=== PATIENT | female | born 1935 | race Caucasian/White ===

== ENCOUNTER → 2018-07-27 08:53 | Outpatient (CLI) | payer MEDICARE, OTHER | END | disposition home or self-care (01) | LOC: D.CT 08:53 | PROVIDERS: ATTEND Family Medicine | DX: R10.13 Epigastric pain (principal) ==

== ENCOUNTER 2018-08-06 07:48 | Inpatient (IN) | payer MEDICARE, OTHER ==
[~2018-08-06] VITALS: Ht 157.5 cm; Wt 71.7 kg
[2018-08-06 08:13] LABS: BASOPHILS 0.4 % (0-2); HEMATOCRIT 39.3 % (36.0-48.0); HEMOGLOBIN 13.7 g/dL (12-16); IMMATURE GRANULOCYTES 0.1 % (0-5); LYMPHOCYTES 17.5 % (15-50); MCH 32.1 pg (26.0-34.0); MCHC 34.9 g/dL (31.0-37.0); MEAN PLATELET VOLUME 10.2 fL (7.4-10.4); MONOCYTES 13.3 % (2-11); NEUTROPHILS 66.7 % (40-80); PLATELET COUNT 241 10x3/uL (130-400); RBC 4.27 10x6/uL (4.00-5.40); RDW 15.6 % (11.5-14.5); WBC 6.9 10x3/uL (4.8-10.8)
[2018-08-06 08:23] LABS: APTT 30.7 SECONDS (22.8-39.4); INR 1.03 (0.85-1.17)
[2018-08-06 08:38] LABS: ALBUMIN 2.9 g/dL (3.4-5.0); ANION GAP 17.5 mmol/L (8-16); BILIRUBIN - TOTAL 13.42 mg/dL (0.2-1.3); CALCIUM 9.9 mg/dL (8.5-10.1); CARBON DIOXIDE 26.8 mmol/L (21.0-32.0); CREATININE - SERUM 0.8 mg/dL (0.6-1.3); POTASSIUM - SERUM 3.3 mmol/L (3.5-5.1); PROTEIN - SERUM 7.6 g/dL (6.4-8.2)
[2018-08-06] MEDS ORDERED: AMBIEN10 MG (09:04)
[2018-08-06 09:20] VITALS: BP 142/85; BMI 30.4
[2018-08-06] MEDS ORDERED: SENNA8.6 MG PO (19:56)
[2018-08-06 20:06] VITALS: BP 149/77
[2018-08-06 21:10] VITALS: BP 149/77; BMI 28.9
[2018-08-07 03:15] VITALS: BP 153/83
[2018-08-07 08:09] VITALS: BP 155/80
[2018-08-07 09:01] LABS: BASOPHILS 0.3 % (0-2); EOSINOPHILS 1.6 % (0-7); HEMATOCRIT 36.6 % (36.0-48.0); IMMATURE GRANULOCYTES 0.2 % (0-5); LYMPHOCYTES 14.5 % (15-50); MCH 32.2 pg (26.0-34.0); MCHC 35.5 g/dL (31.0-37.0); MCV 90.6 fL (80.0-100.0); MEAN PLATELET VOLUME 10.1 fL (7.4-10.4); MONOCYTES 13.1 % (2-11); NEUTROPHILS 70.3 % (40-80); PLATELET COUNT 239 10x3/uL (130-400); RBC 4.04 10x6/uL (4.00-5.40); RDW 15.6 % (11.5-14.5); WBC 6.3 10x3/uL (4.8-10.8)
[2018-08-07 09:18] LABS: ALBUMIN 2.3 g/dL (3.4-5.0); ALKALINE PHOSPHATASE 513 U/L (46-116); BILIRUBIN - TOTAL 13.72 mg/dL (0.2-1.3); CALC OSMOLALITY 271 mosm/kg (275-300); CALCIUM 9.1 mg/dL (8.5-10.1); CARBON DIOXIDE 28.3 mmol/L (21.0-32.0); CHLORIDE - SERUM 100 mmol/L (98-107); CREATININE - SERUM 0.5 mg/dL (0.6-1.3); GLUCOSE 156 mg/dL (74-106); POTASSIUM - SERUM 3.5 mmol/L (3.5-5.1); PROTEIN - SERUM 6.6 g/dL (6.4-8.2); SODIUM 135 mmol/L (136-145); UREA NITROGEN 9 mg/dL (7-18)
[2018-08-07 09:19] LABS: ALT (SGPT) 84 U/L (10-68); eGFR NON AFRICAN AMERICAN > 90 mL/min (90-120)
[2018-08-07 10:09] VITALS: Ht 157.5 cm; Wt 71.7 kg
[2018-08-07 12:30] VITALS: BP 136/73
[2018-08-07 21:30] VITALS: BP 162/91
[2018-08-08 05:12] VITALS: BP 163/78
[2018-08-08 08:01] LABS: INR 1.1 (0.85-1.17); PROTIME 13.7 SECONDS (11.6-15.0)
[2018-08-08 08:02] LABS: BASOPHILS 0.1 % (0-2); EOSINOPHILS 0.9 % (0-7); HEMOGLOBIN 12.1 g/dL (12-16); IMMATURE GRANULOCYTES 0.3 % (0-5); LYMPHOCYTES 12.4 % (15-50); MCH 31.5 pg (26.0-34.0); MCHC 34.6 g/dL (31.0-37.0); MCV 91.1 fL (80.0-100.0); MEAN PLATELET VOLUME 10.6 fL (7.4-10.4); MONOCYTES 16.1 % (2-11); NEUTROPHILS 70.2 % (40-80); PLATELET COUNT 232 10x3/uL (130-400); RBC 3.84 10x6/uL (4.00-5.40); RDW 15.9 % (11.5-14.5); WBC 6.8 10x3/uL (4.8-10.8)
[2018-08-08 08:06] VITALS: BP 133/88
[2018-08-08 08:09] LABS: ALBUMIN 2.1 g/dL (3.4-5.0); ALKALINE PHOSPHATASE 470 U/L (46-116); ALT (SGPT) 67 U/L (10-68); AMYLASE - SERUM 9 U/L (25-115); BILIRUBIN - TOTAL 17.15 mg/dL (0.2-1.3); CALC OSMOLALITY 270 mosm/kg (275-300); CALCIUM 8.6 mg/dL (8.5-10.1); CARBON DIOXIDE 26.1 mmol/L (21.0-32.0); CHLORIDE - SERUM 100 mmol/L (98-107); CREATININE - SERUM 0.5 mg/dL (0.6-1.3); GLUCOSE 152 mg/dL (74-106); LIPASE 52 U/L (73-393); PROTEIN - SERUM 6.1 g/dL (6.4-8.2); SODIUM 135 mmol/L (136-145); eGFR NON AFRICAN AMERICAN > 90 mL/min (90-120)
[2018-08-08 08:10] LABS: UREA NITROGEN 6 mg/dL (7-18)
[2018-08-08 15:59] VITALS: BP 155/75
[2018-08-08 16:30] VITALS: BP 164/83
[2018-08-08 20:00] VITALS: BP 129/81
[2018-08-09] VITALS: BP 160/87
[2018-08-09 05:00] VITALS: BP 131/78
[2018-08-09 07:12] LABS: BASOPHILS 0 % (0-2); EOSINOPHILS 1.4 % (0-7); HEMATOCRIT 34.4 % (36.0-48.0); HEMOGLOBIN 11.9 g/dL (12-16); IMMATURE GRANULOCYTES 0.2 % (0-5); LYMPHOCYTES 20.7 % (15-50); MCH 31.3 pg (26.0-34.0); MCHC 34.6 g/dL (31.0-37.0); MCV 90.5 fL (80.0-100.0); MEAN PLATELET VOLUME 10.9 fL (7.4-10.4); MONOCYTES 12.6 % (2-11); NEUTROPHILS 65.1 % (40-80); PLATELET COUNT 247 10x3/uL (130-400); RDW 16.4 % (11.5-14.5); WBC 5.7 10x3/uL (4.8-10.8)
[2018-08-09 07:27] LABS: ALBUMIN 1.9 g/dL (3.4-5.0); ALKALINE PHOSPHATASE 423 U/L (46-116); ALT (SGPT) 52 U/L (10-68); BILIRUBIN - TOTAL 17.65 mg/dL (0.2-1.3); CALC OSMOLALITY 278 mosm/kg (275-300); CALCIUM 8.8 mg/dL (8.5-10.1); CARBON DIOXIDE 25.9 mmol/L (21.0-32.0); CHLORIDE - SERUM 106 mmol/L (98-107); CREATININE - SERUM 0.4 mg/dL (0.6-1.3); GLUCOSE 152 mg/dL (74-106); PROTEIN - SERUM 5.6 g/dL (6.4-8.2); SODIUM 139 mmol/L (136-145); UREA NITROGEN 7 mg/dL (7-18); eGFR NON AFRICAN AMERICAN > 90 mL/min (90-120)
[2018-08-09 07:31] LABS: POTASSIUM - SERUM 3.5 mmol/L (3.5-5.1)
[2018-08-09 08:00] VITALS: BP 141/73
[2018-08-09 14:16] VITALS: BP 139/70
[2018-08-09 14:47] LABS: APPEARANCE CLEAR (CLEAR); COLOR AMBER (YELLOW); GLUCOSE NEGATIVE (NEGATIVE); KETONE NEGATIVE (NEGATIVE); NITRITE NEGATIVE (NEGATIVE); PROTEIN NEGATIVE (NEGATIVE); SPECIFIC GRAVITY 1.015 (1.005-1.020)
[2018-08-09 14:48] LABS: BILIRUBIN 3+ (NEGATIVE)
[2018-08-09 14:49] LABS: BACTERIA MODERATE /hpf (NONE SEEN); EPITHELIAL CELLS 0-5 /hpf (0-5); RED CELLS - URINE 0-5 /hpf (0-5); WHITE CELLS - URINE 0-5 /hpf (0-5)
[2018-08-09 16:00] VITALS: BP 155/82
[2018-08-09 20:49] VITALS: BP 153/93
[2018-08-10 01:07] VITALS: BP 150/85
[2018-08-10 06:17] VITALS: BP 147/83
[2018-08-10 07:14] LABS: ALBUMIN 1.8 g/dL (3.4-5.0); ALKALINE PHOSPHATASE 399 U/L (46-116); ALT (SGPT) 42 U/L (10-68); BILIRUBIN - TOTAL 13.99 mg/dL (0.2-1.3); CALC OSMOLALITY 277 mosm/kg (275-300); CALCIUM 8.6 mg/dL (8.5-10.1); CARBON DIOXIDE 25.8 mmol/L (21.0-32.0); CHLORIDE - SERUM 103 mmol/L (98-107); GLUCOSE 162 mg/dL (74-106); POTASSIUM - SERUM 3.2 mmol/L (3.5-5.1); PROTEIN - SERUM 5.8 g/dL (6.4-8.2); SODIUM 138 mmol/L (136-145); UREA NITROGEN 8 mg/dL (7-18)
[2018-08-10 07:27] LABS: CREATININE - SERUM 0.6 mg/dL (0.6-1.3); eGFR NON AFRICAN AMERICAN > 90 mL/min (90-120)
[2018-08-10 07:34] LABS: HEMOGLOBIN 12.1 g/dL (12-16); LYMPHOCYTES 22.2 % (15-50); MCH 32.5 pg (26.0-34.0); MCHC 34.6 g/dL (31.0-37.0); MEAN PLATELET VOLUME 10.1 fL (7.4-10.4); NEUTROPHILS 63.1 % (40-80); PLATELET COUNT 210 10x3/uL (130-400); RBC 3.72 10x6/uL (4.00-5.40); RDW 18.6 % (11.5-14.5); WBC 4.6 10x3/uL (4.8-10.8)
[2018-08-10 07:35] LABS: MCV 94.1 fL (80.0-100.0)
[2018-08-10 08:01] VITALS: BP 145/71
[2018-08-10 12:00] VITALS: BP 143/78
--- NOTE | 2018-08-10 15:06 | MORECARE ---
CASE MANAGEMENT DISCHARGE SUMMARY PATIENT: KENNEDY BRYAN UNIT: [id number] ADM DATE: 08/06/18 AGE: 83 : 37 SEX: F ROOM/BED: D.1209 AUTHOR: ANDREW,DOC PHYSICIAN: REFERRING PHYSICIAN: YULISA CORTEZ MD DATE OF SERVICE: 08/10/18 Discharge Plan Patient Name: KENNEDY BRYAN Facility: [facility]:[place] : 1935 Planned Disposition: Home Anticipated Discharge Date: 08/11/18 Discharge Date: Expected LOS: 5 Initial Reviewer: [email or web address] Initial Review Date: 08/10/2018 Generated: 08/10/18 4:06 pm Comments DCP- Discharge Planning Updated by [id number]: Lana Lopez on 08/10/18 2:[address] CM met with patient about discharge planning / needs. Patient states her plan is to discharge to home where she lives alone. States home environment is safe. States she has family and friends that are available to come stay with her and help her as needed / requested. Denies need for home health or other discharge planning needs at this time. States her friend will transport her home upon hospital discharged. CM explained and served DC IMM. CM will continue to follow and assist as needed with discharge planning / needs. DCP- Discharge Planning Updated by [email or web address]: Lana Lopez on 08/09/18 3:[address] CM ATTEMPTED TO MEET WITH PATIENT TO DISCUSS DISCHARGE PLANNING / NEEDS. DR VALLECILLO IN PATIENT'S ROOM. REQUESTED CM TO COME BACK TOMORROW. CM WILL RE-ATTEMPT ASSESSMENT TOMORROW. DCPIA - Discharge Planning Initial Assessment Updated by [email or web address]: Lana Lopez on 08/10/18 3:01 pm * Is the patient Alert and Oriented? Yes * How many steps to enter\exit or inside your home? * PCP DR TRACY * Pharmacy [address] * Preadmission Environment Home Alone * ADLs Independent * Equipment None * Other Equipment HAS BUILT IN CHAIR/BENCH X2 IN SHOWER * List name and contact numbers for known caregivers / representatives who currently or will assist patient after discharge: LAURA MAGAÑA, DAUGHTER, * Verbal permission to speak to the caregivers and representatives has been obtained from the patient. N/A * Community resources currently utilized None * Additional services required to return to the preadmission environment? No * Can the patient safely return to the preadmission environment? Yes * Has this patient been hospitalized within the prior 30 days at any hospital? No Coverage Notice Reviewer: [email or web address] Michelle Lopez Notice Issued Date-Time: 08/10/2018 14:35 Notice Type: IM Discharge Notice Notice Delivered To: Patient Relationship to Patient: Self Phosphorus Processing Supervisor Name: Delivery Method: HAND - Hand Delivered Tabatha Days: Prior Verbal Notification: Recipient Understood Notice: Yes Recipient Signature: Yes Med Rec Note Co-signed by Attending: Coverage Notice Comment: Patient Name: KENNEDY BRYAN Page [phone] at 1506 All edits/amendments must be made on the electronic document DICTATION DATE: 08/10/18 1506 POST TENSIONING IRONWORKER: ELIUD 08/10/18 1506 RPT#: [id number] DC DATE: STATUS: ADM IN [facility] [address] [place] [address] END OF REPORT
[2018-08-10 16:00] VITALS: BP 144/66
--- NOTE | 2018-08-13 09:27 | MORECARE ---
CASE MANAGEMENT DISCHARGE SUMMARY PATIENT: KENNEDY BRYAN UNIT: [id number] ADM DATE: 08/06/18 AGE: 83 : 37 SEX: F ROOM/BED: D.1209 AUTHOR: ANDREW,DOC PHYSICIAN: REFERRING PHYSICIAN: YULISA CORTEZ MD DATE OF SERVICE: 08/13/18 Discharge Plan Patient Name: KENNEDY BRYAN Facility: [facility]:[place] : 1935 Planned Disposition: Home Anticipated Discharge Date: 08/11/18 Discharge Date: 08/10/2018 Expected LOS: 5 Initial Reviewer: [email or web address] Initial Review Date: 08/10/2018 Generated: 08/13/18 10:26 am Comments DCP- Discharge Planning Updated by [email or web address]: Lana Lopez on 08/10/18 2:[address] CM met with patient about discharge planning / needs. Patient states her plan is to discharge to home where she lives alone. States home environment is safe. States she has family and friends that are available to come stay with her and help her as needed / requested. Denies need for home health or other discharge planning needs at this time. States her friend will transport her home upon hospital discharged. CM explained and served DC IMM. CM will continue to follow and assist as needed with discharge planning / needs. DCP- Discharge Planning Updated by [email or web address]: Lana Lopez on 08/09/18 3:[address] CM ATTEMPTED TO MEET WITH PATIENT TO DISCUSS DISCHARGE PLANNING / NEEDS. DR VALLECILLO IN PATIENT'S ROOM. REQUESTED CM TO COME BACK TOMORROW. CM WILL RE-ATTEMPT ASSESSMENT TOMORROW. DCPIA - Discharge Planning Initial Assessment Updated by [id number]: Lana Lopez on 08/10/18 3:01 pm * Is the patient Alert and Oriented? Yes * How many steps to enter\exit or inside your home? * PCP DR TRACY * Pharmacy [address] * Preadmission Environment Home Alone * ADLs Independent * Equipment None * Other Equipment HAS BUILT IN CHAIR/BENCH X2 IN SHOWER * List name and contact numbers for known caregivers / representatives who currently or will assist patient after discharge: LAURA MAGAÑA, DAUGHTER, * Verbal permission to speak to the caregivers and representatives has been obtained from the patient. N/A * Community resources currently utilized None * Additional services required to return to the preadmission environment? No * Can the patient safely return to the preadmission environment? Yes * Has this patient been hospitalized within the prior 30 days at any hospital? No Coverage Notice Reviewer: [email or web address] Michelle Lopez Notice Issued Date-Time: 08/10/2018 14:35 Notice Type: IM Discharge Notice Notice Delivered To: Patient Relationship to Patient: Self Inset Cutter Name: Delivery Method: HAND - Hand Delivered Tabatha Days: Prior Verbal Notification: Recipient Understood Notice: Yes Recipient Signature: Yes Med Rec Note Co-signed by Attending: Coverage Notice Comment: Last DP export: 08/10/18 2:06 p Patient Name: KENNEDY BRYAN Page [phone] at 0927 All edits/amendments must be made on the electronic document DICTATION DATE: 08/13/18925 SCOWMAN: ELIUD 08/13/18925 RPT#: [id number] DC DATE:08/10/18 STATUS: DIS IN [facility] [address] [place] [address] END OF REPORT
== END 2018-08-10 19:57 | disposition home or self-care (01) | DRG 436 ==
LOC: D.SP 07:48 → D.WS 12:52 → D.SDCHOLD 12:52 → D.WS 19:07 → D.M3 08-08 18:24
PROVIDERS: Anesthesiology; Internal Medicine Gastroenterology; Radiology Vascular & Interventional Radiology; Specialist; ADMIT Internal Medicine Nephrology; ATTEND Internal Medicine Nephrology
PROC: 0FBG3ZX Excision of Pancreas, Percutaneous Approach, Diagnostic (ICD-10-PCS; principal; 2018-08-06 09:30)
PROC: 0F798DZ Dilation of Common Bile Duct with Intraluminal Device, Via Natural or Artificial Opening Endoscopic (ICD-10-PCS; 2018-08-08)
DX: C25.9 Malignant neoplasm of pancreas, unspecified (principal); K80.51 Calculus of bile duct without cholangitis or cholecystitis with obstruction; K80.21 Calculus of gallbladder without cholecystitis with obstruction; E87.6 Hypokalemia; R68.81 Early satiety; Z87.891 Personal history of nicotine dependence

== ENCOUNTER 2018-09-11 13:46 | Inpatient (IN) | payer MEDICARE, OTHER ==
[~2018-09-11] VITALS: Ht 152.4 cm; Wt 68.0 kg
--- NOTE | ~2018-09-11 | OP ---
PATIENT NAME: KENNEDY BRYAN MEDICAL RECORD: [id number] :[birth year] LOCATION:[facility] [place]- ADMISSION DATE:09/18/18 SURGEON: BRADLY ABDI MD DATE OF OPERATION: 09/18/2018 PREOPERATIVE DIAGNOSES: 1. Pancreatic head adenocarcinoma. 2. Hypokalemia. POSTOPERATIVE DIAGNOSES: 1. Pancreatic head adenocarcinoma. 2. 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 3. Hypokalemia. PROCEDURES: 1. Liver biopsy of the left lobe of the liver. 2. Open cholecystectomy. 3. Gastrojejunostomy. 4. Left subclavian vein port placement. SURGEON: Bradly Abdi MD SOUNDSCRIBER MECHANIC: Evelin Morgan APRN REPORT OF PROCEDURE: The patient's left chest was prepped and draped in sterile fashion. A needle was used to cannulate the left subclavian vein and a guidewire was advanced with ease. Fluoro was used to note that the wire was in good position in the venous system. A skin incision was made on the left superior lateral chest and a subcutaneous pouch was made over the pectoral fascia. The catheter was tunneled between this pouch and the wire exit site. The catheter was then cut with a beveled tip at 25 cm. The dilator trocar device was placed over the wire and the wire and dilator were removed. The port was then sutured to the pectoral fascia using interrupted 4-0 Prolenes times 2. We then closed the subcutaneous tissues with interrupted 3-0 Vicryls and the skin was closed with running subcutaneous 5-0 Monocryl. The catheter was accessed. We were not able to aspirate any blood, but there was easy flow of the fluid into the catheter and we could see on imaging that it was in correct position. We then applied a dressing and let the access in place for anesthesia. We then prepped and draped the abdomen. The abdomen had a palpable mass in the epigastrium. Upper midline incision was performed and electrocautery was used to dissect through the subcutaneous tissues and fascia until we entered the abdominal cavity. Once in the abdomen, the preperitoneal fat pad was removed using electrocautery. The abdomen was inspected, and we could see there was a firm lesion on the left lobe of the liver, which was suspicious. A partial incisional biopsy of this tumor was removed and sent off for frozen specimen. Final report came back as adenocarcinoma, most likely going to be consistent with pancreatic cancer. The patient's daughter was spoken to and at this point, the decision was made to not continue on with the Whipple procedure in order to allow for chemotherapy as soon as possible. Discussions were made with the patient's daughter for quite some time and the decision was finally made by her for just palliative surgical treatment. The patient's gallbladder was removed in a dome down fashion using electrocautery. The cystic duct was clamped twice proximally and tied off with a 3-0 silk tie. The cystic artery was clipped and ligated in standard fashion. The patient had multiple gallstones present and a dilated distended gallbladder. A Dominique OPERATIVE REPORT [id number] KENNEDY BRYAN maneuver had been performed and I was able to get posterior to the lesion. The patient did not appear to have any enlarged lymph nodes in the region. I was able to inspect the patient's abdomen thoroughly and the mass was very firm and rigid. The patient had no evidence of gastric obstruction, but we elected to perform a gastrojejunostomy in case the tumor did enlarge. An opening was made in the middle portion of the patient's omentum and we brought up a loop of small bowel for a [id number] anastomosis on the anterior aspect of the stomach in an antecolic fashion. This was done with a 75 blue load BASILIA stapler. Once this was done, the enterotomies were closed off with a 30 blue load TA stapler. We oversewed the staple lines using multiple lemberted 3-0 silks. An NG tube had been placed and it was positioned appropriately in the body of the stomach. We did not see any evidence of any bleeding at the conclusion of the case. At this point, we irrigated out the abdomen thoroughly with normal saline. We closed the midline fascia using running #1 loop PDS times 2. The subcutaneous tissues were reapproximated with running 3-0 Vicryl, and the skin was closed with kerri. COMPLICATIONS: None. CONDITION: Stable. ANESTHESIA: General endotracheal and epidural. BLOOD LOSS: 50 mL. TRANSINT:[id number] Voice Confirmation ID: [id number] DOCUMENT ID: [id number] BRADLY ABDI MD CC: SONIA MALIK MD and CARLOS HERNANDEZ MD [id number] DICTATION DATE: 09/18/18 1214 SCHOOL SPEECH LANGUAGE PATHOLOGIST: 09/18/18 1247 ADM IN [facility] [address] [facility], [facility]
[~2018-09-11 13:46] MED LIST: AMBIEN10 MG; SENNA8.6 MG PO
[2018-09-17 12:55] LABS: BASOPHILS 0.3 % (0-2); EOSINOPHILS 3.6 % (0-7); HEMATOCRIT 40.3 % (36.0-48.0); HEMOGLOBIN 13.5 g/dL (12-16); IMMATURE GRANULOCYTES 0.3 % (0-5); LYMPHOCYTES 25.1 % (15-50); MCHC 33.5 g/dL (31.0-37.0); MCV 95.5 fL (80.0-100.0); MEAN PLATELET VOLUME 9.6 fL (7.4-10.4); MONOCYTES 9.6 % (2-11); NEUTROPHILS 61.1 % (40-80); PLATELET COUNT 204 10x3/uL (130-400); RBC 4.22 10x6/uL (4.00-5.40); RDW 13.4 % (11.5-14.5); WBC 6.3 10x3/uL (4.8-10.8)
[2018-09-17 13:12] LABS: CALC OSMOLALITY 278 mosm/kg (275-300); CALCIUM 9.7 mg/dL (8.5-10.1); CARBON DIOXIDE 30.7 mmol/L (21.0-32.0); CHLORIDE - SERUM 102 mmol/L (98-107); CREATININE - SERUM 0.7 mg/dL (0.6-1.3); GLUCOSE 114 mg/dL (74-106); SODIUM 140 mmol/L (136-145); UREA NITROGEN 9 mg/dL (7-18); eGFR NON AFRICAN AMERICAN 85 mL/min (90-120)
[2018-09-17 13:16] LABS: APTT 33.6 SECONDS (22.8-39.4); INR 1.12 (0.85-1.17); PROTIME 13.9 SECONDS (11.6-15.0)
[2018-09-18 07:55] VITALS: BP 143/95; BMI 29.3
--- NOTE | 2018-09-18 08:41 | NUR ---
0815 PT'S MEDS WERE SCANNED EARLIER BUT HELD UNTIL AFTER PATIENT AND HER DAUGHTER COULD SPEAK WITH DR ABDI. PERMITS SIGNED FIRST AND THEN MEDS GIVEN.
--- NOTE | 2018-09-18 08:43 | NUR ---
0827 RECEIVED A CRITICAL POTASSIUM LEVEL FROM LAB. K+ IS 2.9. 0828 NEPTALI MOULTON COVERSTITCH ELASTIC ATTACHER AT PT'S BEDSIDE INTERVIEWING PT. NOTIFIED HIM OF PT'S K+. HE STATED THAT HE WILL GIVE HER 10MEQ OF KCL IN THE OR. 0830 DR. ABDI NOTIFIED OF K+ RESULTS AND ANESTHESIA'S PLANS TO TREAT.
--- NOTE | 2018-09-18 13:43 | NUR ---
NG TUBE IN LT NARE ON ADMIT TO RR
--- NOTE | 2018-09-18 13:44 | NUR ---
900CC OF CLEAR YELLOW URINE REMOVED FROM BAG @1330
[2018-09-18 13:58] VITALS: BP 140/72
[2018-09-18 14:09] VITALS: BP 140/72; BMI 29.3
--- NOTE | 2018-09-18 14:15 | NUR ---
PT TO ROOM 2223 FROM PACU VIA BED. PT IS AWAKE AND ALERT. SHE IS WITHOUT PAIN.DRESSING TO ABDOMEN HAS ONE AREA WITH SMALL AMOUNT OF DRAINAGE MARKED.EPIDURAL CONTROLLING PAIN. CONT PULSE OX ,99% ON 2 LITERS PER NASAL CANULA. LEDEZMA TO GRAVITY WITH YELLOW URINE IN DRAINAGE BAG. NGT LEFT NARE LIWS.SC'D IN PLACE. ORIENTATION TO ROOM .CALL LIGHT IN REACH. FALL PREVENTION INITIATED.
--- NOTE | 2018-09-18 15:32 | NUR ---
PT LYING IN BED WITH DAUGHTER AT BEDISDE, NO S/S OF DISTRESS. BED IN LOW POSITION. CL IN REACH CONTINUE WITH PLAN OF CARE
[2018-09-18 20:00] VITALS: BP 149/81
--- NOTE | 2018-09-18 20:00 | NUR ---
ASSESSMENT PER FLOWSHEET. DRSG TO ABDOMEN INTACT AREA MARKED. PT ON EPIDURAL. MONITORING VS WELL O2 SATS. IV PATENT TO LEFT ARM ARM IS SWOLLEN TIGHT, CHECKED FOR PLACEMENT IV IS INFILTRATED. IV REMOVED AND RESITED TO RT ARM #22G RESUMED IV FLUIDS.NGT TO LIWS WITH BLOODY DRAINAGE NOTED. BED ALARM ON SCD''S ON. SR UP X2 CALL LIGHT WITHIN REACH DAUGHTER AT BEDSIDE. DRSG TO LEFT INFUSAPORT SITE. O2 ON AT 2L/M PER NC. IV FLUIDS OF NS AT 125CC'S/HR INFUSING NOW.
--- NOTE | 2018-09-18 22:00 | NUR ---
TAKING PO ICE CHIPS ONLY.
[2018-09-19] VITALS: BP 134/77
--- NOTE | 2018-09-19 | NUR ---
EYES CLOSED RESPIRATIONS WITH EASE AND UNLABORED.
[2018-09-19 04:30] VITALS: BP 140/84
--- NOTE | 2018-09-19 04:45 | NUR ---
RESTING QUIETLY RESPIRATIONS WITH EASE AND UNLABORED.
[2018-09-19 07:57] LABS: BASOPHILS 0.1 % (0-2); EOSINOPHILS 0 % (0-7); HEMATOCRIT 35.8 % (36.0-48.0); HEMOGLOBIN 11.9 g/dL (12-16); IMMATURE GRANULOCYTES 0.2 % (0-5); LYMPHOCYTES 10.4 % (15-50); MCHC 33.2 g/dL (31.0-37.0); MCV 96.2 fL (80.0-100.0); MEAN PLATELET VOLUME 10.1 fL (7.4-10.4); MONOCYTES 9.1 % (2-11); NEUTROPHILS 80.2 % (40-80); PLATELET COUNT 209 10x3/uL (130-400); RBC 3.72 10x6/uL (4.00-5.40); RDW 13.8 % (11.5-14.5)
[2018-09-19 08:01] LABS: WBC 10.5 10x3/uL (4.8-10.8)
[2018-09-19 08:19] LABS: CALC OSMOLALITY 284 mosm/kg (275-300); CALCIUM 8.5 mg/dL (8.5-10.1); CARBON DIOXIDE 27.7 mmol/L (21.0-32.0); CHLORIDE - SERUM 108 mmol/L (98-107); CREATININE - SERUM 0.6 mg/dL (0.6-1.3); GLUCOSE 111 mg/dL (74-106); POTASSIUM - SERUM 3.2 mmol/L (3.5-5.1); SODIUM 143 mmol/L (136-145); UREA NITROGEN 9 mg/dL (7-18); eGFR NON AFRICAN AMERICAN > 90 mL/min (90-120)
[2018-09-19 09:22] VITALS: BP 163/94
[2018-09-19 12:39] VITALS: Ht 152.4 cm; Wt 68.0 kg
[2018-09-19 12:49] VITALS: BP 173/91
[2018-09-19 14:56] VITALS: BP 172/98
--- NOTE | 2018-09-19 20:00 | NUR ---
ASSESSMENT PER FLOWSHEET. IV PATENT LEFT INFUSAPORT OF NS AT 100CC'S/HR. LEDEZMA TO BEDSIDE DRAINAGE WITH YELLOW URIINE. NGT PATENT LEFT NARE CONNECTED TO LIWS OLD BLOODY DRAINAGE IN TUBING.
[2018-09-19 20:58] VITALS: BP 175/89
--- NOTE | 2018-09-19 22:00 | NUR ---
REPOSITIONED IN BED SR UP X2 CALL LIGHT WITHIN REACH. EPIDURAL IN USE WITH GOOD PAIN CONTROL.
--- NOTE | 2018-09-20 00:28 | NUR ---
EYES CLOSED RESPIRATIONS WITH EASE AND UNLABORED CONTINUOUS PULSE OX ON O2 SAT RUNNING 90-91% ON ROOM AIR. PLACED ON 2 L/M NC O2 SAT INCREASED TO 95-97%.
[2018-09-20 01:35] VITALS: BP 172/94
[2018-09-20 04:06] LABS: BASOPHILS 0.1 % (0-2); EOSINOPHILS 1.1 % (0-7); HEMATOCRIT 35.8 % (36.0-48.0); HEMOGLOBIN 12.1 g/dL (12-16); IMMATURE GRANULOCYTES 0.2 % (0-5); LYMPHOCYTES 13.9 % (15-50); MCH 32.3 pg (26.0-34.0); MCHC 33.8 g/dL (31.0-37.0); MCV 95.5 fL (80.0-100.0); MEAN PLATELET VOLUME 9.6 fL (7.4-10.4); NEUTROPHILS 74.7 % (40-80); PLATELET COUNT 185 10x3/uL (130-400); RBC 3.75 10x6/uL (4.00-5.40); RDW 13.7 % (11.5-14.5); WBC 9.2 10x3/uL (4.8-10.8)
[2018-09-20 04:28] LABS: CALC OSMOLALITY 272 mosm/kg (275-300); CALCIUM 8.2 mg/dL (8.5-10.1); CARBON DIOXIDE 23.6 mmol/L (21.0-32.0); CHLORIDE - SERUM 102 mmol/L (98-107); CREATININE - SERUM 0.5 mg/dL (0.6-1.3); GLUCOSE 104 mg/dL (74-106); POTASSIUM - SERUM 3.1 mmol/L (3.5-5.1); SODIUM 138 mmol/L (136-145); eGFR NON AFRICAN AMERICAN > 90 mL/min (90-120)
[2018-09-20 04:37] LABS: UREA NITROGEN 5 mg/dL (7-18)
[2018-09-20 05:25] VITALS: BP 185/104
--- NOTE | 2018-09-20 06:57 | NUR ---
PT HAD K+ OF 3.1 PT K+ YESTERDAY WAS 3.2 ADMINISTERED PRN 20MEQ OF K+ YESTERDAY. ORDERED STAT MAG TO SEE WHERE LEVELS ARE TO COVER BOTH K+ AND MAG. CONTINUE WITH PLAN OF CARE
--- NOTE | 2018-09-20 07:28 | NUR ---
PT MAG IS 1.3. PAGED DR ABDI PER DR ABDI MAG SULAFATE 4MG IV AND K+ 40MEQ CONTINUE WITH PLAN OF CARE
[2018-09-20 09:00] VITALS: BP 173/98
[2018-09-20 12:36] VITALS: BP 197/111
--- NOTE | 2018-09-20 14:32 | NUR ---
PULLED PT NGT, PT TOLERATED WELL, STATED THROAT HURTS. ORDERED CHLORASEPTIC FOR PT. PT STATED SHE FELT LIKE HER HEARING WAS COMING AND GOING AND FELT DIZZY. ADVISED PT MAY BE DUE TO PT PRN PAIN MEDICATION THAT WAS ADMINISTERED BEFORE DC NGT. NO OTHER NEEDS VOICED, CONTINUE WITH PLAN OF CARE
--- NOTE | 2018-09-20 15:53 | NUR ---
PT WAS GIVEN BED BATH. CHANGED PT MIDLINE DRESSING. INCISION IS CDI. NO S/S OF DISTRESSNO NEEDS VOICED. CONTINUE WITH PLAN OF CARE
[2018-09-20 16:43] VITALS: BP 157/83
[2018-09-21 00:07] VITALS: BP 142/78
--- NOTE | 2018-09-21 04:20 | NUR ---
PT RESTED WELL OVERNIGHT, ONLY REQUIRING ONE PRN PAIN MED THIS SHIFT.
[2018-09-21 05:07] VITALS: BP 138/76
--- NOTE | 2018-09-21 06:38 | NUR ---
ASSISTED PT TO USE BEDPAN...SHE HAD 300 LOOSE / LIQUID / BLACK STOOL.
[2018-09-21 07:19] LABS: BASOPHILS 0.1 % (0-2); EOSINOPHILS 1.4 % (0-7); HEMATOCRIT 34.4 % (36.0-48.0); HEMOGLOBIN 11.5 g/dL (12-16); IMMATURE GRANULOCYTES 0.1 % (0-5); LYMPHOCYTES 14.3 % (15-50); MCH 31.6 pg (26.0-34.0); MCHC 33.4 g/dL (31.0-37.0); MCV 94.5 fL (80.0-100.0); MONOCYTES 8.2 % (2-11); NEUTROPHILS 75.9 % (40-80); PLATELET COUNT 202 10x3/uL (130-400); RBC 3.64 10x6/uL (4.00-5.40); RDW 13.2 % (11.5-14.5); WBC 9.5 10x3/uL (4.8-10.8)
[2018-09-21 07:42] LABS: CALC OSMOLALITY 273 mosm/kg (275-300); CALCIUM 8.4 mg/dL (8.5-10.1); CARBON DIOXIDE 29.5 mmol/L (21.0-32.0); CHLORIDE - SERUM 100 mmol/L (98-107); CREATININE - SERUM 0.4 mg/dL (0.6-1.3); GLUCOSE 115 mg/dL (74-106); MAGNESIUM - SERUM 2.1 mg/dL (1.8-2.4); SODIUM 138 mmol/L (136-145); UREA NITROGEN 5 mg/dL (7-18); eGFR NON AFRICAN AMERICAN > 90 mL/min (90-120)
[2018-09-21 07:45] LABS: POTASSIUM - SERUM 2.7 mmol/L (3.5-5.1)
--- NOTE | 2018-09-21 08:04 | NUR ---
PT RESTING IN BED. NO SIGNS OF DISTRESS. IV TO LEFT SUBCLAVIAN IMPLANTED PORT PATENT NO REDNESS OR TENDERNESS. HAS MIDLINE INCISION DRESSING CLEAN AND INTACT. HAS LEDEZMA NO KINKS PATENT. POTASSIUM OF 2.7 DR WAS NOTIFIED. DENIES ANY NEED AT THIS TIME. CALL LIGHT IN REACH. BED LOW POSITION. NO FAMILY AT BEDSIDE AT THIS TIME.
[2018-09-21 09:05] VITALS: BP 164/94
--- NOTE | 2018-09-21 13:31 | NUR ---
NUTRITION F/U CLEAR LIQUID DIET STARTED. WILL MONITOR DIET ADVANCEMENT, PT PROGRESS. RD FOLLOWING
--- NOTE | 2018-09-21 17:00 | NUR ---
LEDEZMA CATHETER REMOVED. 10CC WATER WITHDRAWN BEFORE REMOVAL. PATIENT TOLERATED WELL.
--- NOTE | 2018-09-21 17:02 | MORECARE ---
CASE MANAGEMENT DISCHARGE SUMMARY PATIENT: KENNEDY BRYAN UNIT: [id number] ADM DATE: 09/18/18 AGE: 83 : 37 SEX: F ROOM/BED: D.2223 AUTHOR: VINCENT MORALES PHYSICIAN: REFERRING PHYSICIAN: MARIA DEL CARMEN ABDI MD DATE OF SERVICE: 09/21/18 Discharge Plan Patient Name: KENNEDY BRYAN Facility: [facility]:[place] : 1935 Planned Disposition: Home Anticipated Discharge Date: Discharge Date: Expected LOS: Initial Reviewer: [email or web address] Initial Review Date: 09/21/2018 Generated: 09/21/18 6:02 pm Comments DCP- Discharge Planning Updated by [email or web address]: Evi Rene on 09/21/18 3:[address] Patient Name: KENNEDY BRYAN Admission Status: Urgent Accout number: [id number] Admission Date: 09-18-2018 : 1935 Admission Diagnosis:MALIGNANT NEOPLASM OF HEAD OF PANCREAS Attending: MARIA DEL CARMEN ABDI Current LOS: 3 Anticipated DC Date: Planned Disposition: Home Primary Insurance: MEDICARE A & B Discharge Planning Comments: CM met with patient to complete initial dc planning assessment. CM educated patient on the CM role and verbal consent given by patient to complete assessment. Patient lives at home alone. At discharge patient plans to return and feels this is a safe discharge. CM discussed availability of home health, rehab services, and medical equipment. Patient denied known discharge needs at this time. She states her daughter is here from [place] and her son is coming in from [place] on Monday and he will stay with her for awhile. I gave her a ANDRAE form for home health and she states at this time she does not want home health. She states she will have Dr. Garcia order it if needed. She also states she is thinking about [facility] and will have Dr. Garcia consult them when she is ready. CM will continue to follow and will assist as needed with dc plans/needs. Injection Molding Supervisor: Evi Rene DCPIA - Discharge Planning Initial Assessment Updated by [email or web address]: Evi Rene on 09/21/18 4:55 pm * Is the patient Alert and Oriented? Yes * How many steps to enter\exit or inside your home? 0/1 flight * PCP Dr. Dockery * Pharmacy [facility] 7[facility] * Preadmission Environment Home Alone * ADLs Independent * Equipment Other * Other Equipment Built in shower bench X2 * List name and contact numbers for known caregivers / representatives who currently or will assist patient after discharge: [facility] - [phone] * Verbal permission to speak to the caregivers and representatives has been obtained from the patient. Yes * Community resources currently utilized None * Additional services required to return to the preadmission environment? No * Can the patient safely return to the preadmission environment? Yes * Has this patient been hospitalized within the prior 30 days at any hospital? No Patient Name: KENNEDY BRYAN Page 90036 at 1702 All edits/amendments must be made on the electronic document DICTATION DATE: 09/21/181700 BUSINESS INITIATIVES MANAGER: ELIUD 09/21/181700 RPT#: [id number] DC DATE: STATUS: ADM IN [facility] [address] [place] [address] END OF REPORT
[2018-09-21 17:40] VITALS: BP 140/73
--- NOTE | 2018-09-21 19:00 | NUR ---
REPORT RECEIVED AND CARE OF PT ASSUMED. PT LYING IN LOW POPE'S POSITION WITH EYES CLOSED. LEFT IP SALINE LOCKED. SCD'S IN PLACE ON BLE. WILL MONITOR FOR NEEDS.
[2018-09-21 20:06] VITALS: BP 140/81
--- NOTE | 2018-09-21 20:15 | NUR ---
ASSISTED PT UP TO USE RESTROOM...HAD LIQUID BM, BUT NO URINE YET. POSITIONED BACK IN BED FOR COMFORT.
--- NOTE | 2018-09-21 20:48 | NUR ---
ENCOURAGING WATER INTAKE, PT NOT URINATED SINCE LEDEZMA REMOVED AT 1700.
[2018-09-22] VITALS (7 sets, daily range): BP systolic 139–162; BP diastolic 77–86
[2018-09-22 05:10] LABS: CALC OSMOLALITY 277 mosm/kg (275-300); CARBON DIOXIDE 29.8 mmol/L (21.0-32.0); CHLORIDE - SERUM 103 mmol/L (98-107); CREATININE - SERUM 0.5 mg/dL (0.6-1.3); GLUCOSE 110 mg/dL (74-106); POTASSIUM - SERUM 3.3 mmol/L (3.5-5.1); SODIUM 140 mmol/L (136-145); UREA NITROGEN 8 mg/dL (7-18); eGFR NON AFRICAN AMERICAN > 90 mL/min (90-120)
[2018-09-22 05:18] LABS: BASOPHILS 0.2 % (0-2); EOSINOPHILS 5.8 % (0-7); HEMOGLOBIN 11.8 g/dL (12-16); IMMATURE GRANULOCYTES 0.2 % (0-5); LYMPHOCYTES 21.3 % (15-50); MCH 32.2 pg (26.0-34.0); MCHC 33.7 g/dL (31.0-37.0); MCV 95.4 fL (80.0-100.0); MEAN PLATELET VOLUME 9.9 fL (7.4-10.4); MONOCYTES 11.9 % (2-11); NEUTROPHILS 60.6 % (40-80); PLATELET COUNT 183 10x3/uL (130-400); RBC 3.67 10x6/uL (4.00-5.40); RDW 13.4 % (11.5-14.5)
[2018-09-22 05:19] LABS: WBC 6.2 10x3/uL (4.8-10.8)
--- NOTE | 2018-09-22 19:00 | NUR ---
REPORT RECEIVED AND CARE OF PT ASSUMED. PT LYING IN HIGH POPE'S POSITION WITH EYES CLOSED. LEFT PORT SALINE LOCKED. MIDLINE INCISION WELL APPROXIMATED WITH JACINDA. WILL MONITOR FOR NEEDS.
--- NOTE | 2018-09-22 21:23 | NUR ---
PT RESTING AND WATCHING TV AT THIS TIME. HAD DISCUSSION THAT PT FEELS SHE CAN AMBULATE TO RESTROOM WITHOUT ASSISTANCE...TOLD HER TO CALL IF SHE NEEDS ASSISTANCE. SHE WOULD LIKE TO WAIT TILL 11 PM TO TAKE AMBIEN.
--- NOTE | 2018-09-22 21:41 | NUR ---
APPLIED MEPILEX BORDER DRESSING ON ABDOMINAL INCISION.
[2018-09-23 01:08] VITALS: BP 149/87
[2018-09-23 05:29] VITALS: BP 157/88
[2018-09-23 08:05] VITALS: BP 164/89
[2018-09-23 11:53] VITALS: BP 157/81
--- NOTE | 2018-09-23 14:38 | NUR ---
DAUGHTER IN ROOM. NO NEEDS AT THIS TIME. WCTM
[2018-09-23 15:06] VITALS: BP 150/82
[2018-09-23] MEDS ORDERED: HYDROCODON-ACE1 EAC7 PO (15:54)
[2018-09-23] MEDS ORDERED: LISINOPRIL20 MG PO (15:54)
--- NOTE | 2018-09-23 16:13 | NUR ---
ISSUED LISINOPRIL 20 MG ONE DAILY #20 TO WG, HSV. SPOKE TO ITALO, PHARMACIST.
--- NOTE | 2018-09-27 15:31 | MORECARE ---
CASE MANAGEMENT DISCHARGE SUMMARY PATIENT: KENNEDY BRYAN UNIT: [id number] ADM DATE: 09/18/18 AGE: 83 : 37 SEX: F ROOM/BED: D.2223 AUTHOR: VINCENT MORALES PHYSICIAN: REFERRING PHYSICIAN: MARIA DEL CARMEN ABDI MD DATE OF SERVICE: 09/27/18 Discharge Plan Patient Name: KENNEDY BRYAN Facility: [facility]:[place] : 1935 Planned Disposition: Home Anticipated Discharge Date: Discharge Date: 09/23/2018 Expected LOS: 0 Initial Reviewer: [email or web address] Initial Review Date: 09/21/2018 Generated: 09/27/18 4:31 pm Comments DCP- Discharge Planning Updated by [id number]: Evi Rene on 09/21/18 3:[address] Patient Name: KENNEDY BRYAN Admission Status: Urgent Accout number: [id number] Admission Date: 09-18-2018 : 1935 Admission Diagnosis:MALIGNANT NEOPLASM OF HEAD OF PANCREAS Attending: MARIA DEL CARMEN ABDI Current LOS: 3 Anticipated DC Date: Planned Disposition: Home Primary Insurance: MEDICARE A & B Discharge Planning Comments: CM met with patient to complete initial dc planning assessment. CM educated patient on the CM role and verbal consent given by patient to complete assessment. Patient lives at home alone. At discharge patient plans to return and feels this is a safe discharge. CM discussed availability of home health, rehab services, and medical equipment. Patient denied known discharge needs at this time. She states her daughter is here from [place] and her son is coming in from [place] on Monday and he will stay with her for awhile. I gave her a ANDRAE form for home health and she states at this time she does not want home health. She states she will have Dr. Garcia order it if needed. She also states she is thinking about [facility] and will have Dr. Garcia consult them when she is ready. CM will continue to follow and will assist as needed with dc plans/needs. Music Director: Evi Rene DCPIA - Discharge Planning Initial Assessment Updated by [email or web address]: Evi Rene on 09/21/18 4:55 pm * Is the patient Alert and Oriented? Yes * How many steps to enter\exit or inside your home? 0/1 flight * PCP Dr. Dockery * Pharmacy [facility] 7N * Preadmission Environment Home Alone * ADLs Independent * Equipment Other * Other Equipment Built in shower bench X2 * List name and contact numbers for known caregivers / representatives who currently or will assist patient after discharge: Shea [facility] - [phone] * Verbal permission to speak to the caregivers and representatives has been obtained from the patient. Yes * Community resources currently utilized None * Additional services required to return to the preadmission environment? No * Can the patient safely return to the preadmission environment? Yes * Has this patient been hospitalized within the prior 30 days at any hospital? No Last DP export: 09/21/18 4:02 p Patient Name: KENNEDY BRYAN Page 12402 at 1531 All edits/amendments must be made on the electronic document DICTATION DATE: 09/27/18 153 INSURANCE CLAIM APPROVER: ELIUD 09/27/18 153 RPT#: [id number] DC DATE:09/23/18 STATUS: DIS IN [facility] [address] [place] [address] END OF REPORT
== END 2018-09-23 17:44 | disposition home or self-care (01) | DRG 415 ==
LOC: D.SDCHOLD 09-18 06:50 → D.MS 09-18 06:50 → D.SDCHOLD 09-18 08:00 → D.MS 09-18 13:21
PROVIDERS: Anesthesiology; ADMIT Surgery; ATTEND Surgery
PROC: 0FT40ZZ Resection of Gallbladder, Open Approach (ICD-10-PCS; principal; 2018-09-18 09:00)
PROC: 0JH60VZ Insertion of Infusion Pump into Chest Subcutaneous Tissue and Fascia, Open Approach (ICD-10-PCS; 2018-09-18 09:00)
PROC: 0D160ZA Bypass Stomach to Jejunum, Open Approach (ICD-10-PCS; 2018-09-18 09:00)
PROC: 0FB00ZX Excision of Liver, Open Approach, Diagnostic (ICD-10-PCS; 2018-09-18 09:00)
DX: C25.0 Malignant neoplasm of head of pancreas (principal); C78.7 Secondary malignant neoplasm of liver and intrahepatic bile duct

== ENCOUNTER 2018-11-24 21:00 | Inpatient (IN) | payer OTHER ==
[~2018-11-24] VITALS: Ht 152.4 cm; Wt 63.6 kg
[~2018-11-24 21:00] MED LIST changes: +HYDROCODON-ACE1 EAC7 PO; +LISINOPRIL20 MG PO
--- NOTE | 2018-11-24 21:20 | NUR ---
JOSELYN WITH [facility] AT PT BEDSIDE.
--- NOTE | 2018-11-24 21:45 | NUR ---
NURY WITH [facility] AT PT BEDSIDE.
--- NOTE | 2018-11-24 23:00 | NUR ---
ADMISSION ASSESSMENT NOT PERFORMED PATIENT ARRIVED ON FLOOR WITH NO SIGNS OF LIFE. SHE WAS ACCOMPANIED BY HER HOSPICE NURSE THAT PROCEEDED TO PRONOUNCE PT AND COMPLETE NECESSARY PAPERWORK.
--- NOTE | 2018-11-24 23:20 | NUR ---
PT ARRIVED FROM ER ON STRETCHER AT 2300. NOTED THAT PT WITH ABSENCE OF RESPIRATIONS. NO HEARTBEAT AUSCULTATED. HOSPICE NURSE PRESENT, WELL PATIENT'S HOME HEALTH NURSE. PRONOUNCED BY HOSPICE NURSE AT 2301. PHONE CALL TO JESSIE. PT DECLINED D/T CANCER.
[2018-11-25 10:04] VITALS: Ht 152.4 cm; Wt 63.6 kg
--- NOTE | 2018-11-26 04:58 | NUR ---
LATE ENTRY FOR 03/28/19 @ 0030 PT WAS RELEASED TO [facility].
--- NOTE | 2018-11-26 09:14 | MORECARE ---
CASE MANAGEMENT DISCHARGE SUMMARY PATIENT: KENNEDY BRYAN UNIT: [id number] ADM DATE: 11/24/18 AGE: 83 : 39 SEX: F ROOM/BED: D.2106 AUTHOR: VINCENT MORALES PHYSICIAN: REFERRING PHYSICIAN: IVAN JOSE MD DATE OF SERVICE: 11/26/18 Discharge Plan Patient Name: KENNEDY BRYAN Facility: [facility] : 1935 Planned Disposition: Anticipated Discharge Date: 11/24/18 Discharge Date: 11/24/2018 Expected LOS: 1 Initial Reviewer: [id number] Initial Review Date: 11/26/2018 Generated: 11/26/18 10:14 am Patient Name: KENNEDY BRYAN Page [id number] at 0914 All edits/amendments must be made on the electronic document DICTATION DATE: 11/26/18913 STAFF DEVELOPMENT COORDINATOR: ELIUD 11/26/18913 RPT#: [id number] DC DATE:11/24/18 STATUS: DIS IN [facility] [address] [place] [address] END OF REPORT
== END 2018-11-24 23:42 | DRG 951 ==
LOC: D.ER 21:00 → D.M2 21:39
PROVIDERS: ADMIT Legal Medicine; ATTEND Legal Medicine
DX: Z51.5 Encounter for palliative care (principal)